=== PATIENT | female | born 1955 ===

== ENCOUNTER 2024-06-12 07:33 | Day surgery (SDC) | payer OTHER ==
[2024-06-05 09:23] LABS: HEMATOCRIT 39.3 % (36.0-45.00); HEMOGLOBIN 13.4 g/dL (12.0-15.00); MEAN CELL VOLUME 87.9 fL (80.00-100.00); MEAN CORPUSCULAR HEMOGLOBIN 29.9 pg (27.00-32.0); PLATELET COUNT 320 K/uL (150-450); RED BLOOD COUNT 4.47 M/uL (4.00-6.00); RED CELL DISTRIBUTION WIDTH 13.4 % (11.5-14.5)
[2024-06-05 09:43] LABS: INR 0.99; PARTIAL THROMBOPLASTIN TIME 26.3 SECONDS (22.0-34.0); PROTHROMBIN TIME 10.8 SECONDS (9.0-11.5)
[2024-06-05 10:18] LABS: CALCIUM 9.1 mg/dL (8.5-10.1); CREATININE SERUM 0.77 mg/dL (0.55-1.02); GFR 74.77; POTASSIUM 4.6 mEq/L (3.5-5.1)
[2024-06-05 14:56] LABS: PH,URINE 5.5 (5.0-8.0); URINE APPEARANCE Clear; URINE BILIRRUBIN Negative (NEGATIVE); URINE BLOOD Negative; URINE COLOR Yellow; URINE KETONE Negative (NEGATIVE); URINE LEUKOCYTE Negative; URINE NITRATE Negative; URINE PROTEIN Negative (NEGATIVE); URINE UROBILINOGEN 0.2 E.U./dl
[2024-06-05 14:57] LABS: URINE EPITHELIAL CELLS 13.7 uL (0.0-38.8); URINE WBC 23.4 uL (0.0-23.2)
[2024-06-05 15:00] LABS: URINE CAST 0.44 uL (0.0-1.40); URINE GLUCOSE >=1000 MG/DL (NEGATIVE); URINE RBC 1.7 uL (0.0-20.8)
[~2024-06-12 07:33] MED LIST: GLUCOPHAGE XR500 MG PO; TRIJARDY XR 101 EACH PO
[2024-06-12] MEDS ORDERED: CEFAZOLIN SODIUM 1,000 MG VIAL ONE (11:41)
[2024-06-12] MEDS ORDERED: BUPIVACAINE HCL/MPF 0.5% 30ML VIAL ONE (11:54)
[2024-06-12] MEDS ORDERED: CEFAZOLIN SODIUM 1,000 MG VIAL IV ONE (12:45)
[2024-06-12] MEDS ORDERED: ENALAPRILAT DIHYDRATE 1.25 MG/ML VIAL IV ONE ×3 (12:54→14:17)
== END 2024-06-12 16:20 | disposition home or self-care (01) ==
LOC: CIR.AMB 07:33 → EDBD 07:45 → CIR.AMB 07:45
PROVIDERS: ATTEND Surgery Surgery of the Hand
DX: M67.843 Other specified disorders of tendon, right hand (principal)